=== PATIENT | female | born 1970 | race Caucasian/White ===

== ENCOUNTER 2018-01-02 01:30 | Outpatient (CLI) | payer MEDICARE, MEDICAID, SELFPAY ==
--- NOTE | 2018-01-02 15:20 | DI.REPORT_ITS ---
SYMPTOMS/DIAGNOSIS: BASELINE SCREENING, Z12.31 MAMMOGRAMS: Mammograms were interpreted according to the usual protocol including computer analysis with CAD system, tomosynthesis and C view imaging. The breast tissue is of moderate radiodensity. There is no evidence of a mass. There are no suspicious calcifications. SUMMARY: No evidence of malignancy, category 1. Yearly screening mammography is recommended. Breast density category B. SA ASSESSMENT OF FINDINGS: Negative. Category 1. Patient will receive a letter notifying them of these results. BI-RADS category B. There are scattered areas of fibroglandular density.
== END 2018-01-02 01:31 ==
PROVIDERS: PCP Nurse Practitioner Family; Visit Provider Nurse Practitioner Family
DX: Z12.31 Encounter for screening mammogram for malignant neoplasm of breast (principal)
CPT/HCPCS: 77063; 77067

== ENCOUNTER 2018-08-03 14:24 | Emergency (ER) | payer MEDICARE, MEDICAID, SELFPAY ==
[2018-08-03 14:30] VITALS: PULSE 76; RESP 16; TEMP 36.4; O2SAT 100
--- NOTE | 2018-08-03 14:45 | ED.GENADUL_ITS ---
Discharge Plan Disposition Patient Disposition: HOME Condition: Stable Discharge Details Chief Complaint: RashLesion Clinical Impression: Tinea corporis Reason For Visit: left arm rash Primary Care Provider: Pamela Mansfield ED Provider: Richard Cordova Home Meds and New Rx's Prescriptions: No Action Zyrtec 10 MG capsule 10 mg PO DAILY RF: 0 risperidone [Risperdal] 0.5 MG tablet 1 mg PO DAILY RF: 0 citalopram 20 MG tablet 20 mg PO DAILY RF: 0 hydroxyzine HCl 10 MG tablet 10 mg PO PRN RF: 0 fluticasone propionate [Flonase Allergy Relief] 9.9 ML spray,suspension 1 - 2 spry NS DAILY Qty: 1 RF: 3 Discharge Instructions Instructions: Tinea Corporis (ED) Additional Instructions: Please use the provided cream twice daily until the rash clears. If the rash is not clearing over the next 1-2 weeks please follow-up with your primary care provider for reassessment. Feel free to return to the emergency department for any new or significant worsening of symptoms Referrals: Pamela Mansfield, JOSE L [Primary Care Provider] - (As needed for reassessment) Discharge Data Discharge Date/Time-TO BE ENTERED AT DEPARTURE: 08/03/18 14:57 Medical Decision Making Patient presenting to the emergency department for chief complaint of left upper arm rash. Patient states that this began as an itchy round area and has worsened over the past couple days. Patient denies any other symptoms, no other rash, no fever no chills no difficulty breathing. Physical exam shows a circular erythematous scaly patch with central clearing and raised border. Symptoms are consistent with tinea corporis on physical exam is otherwise unremarkable. Given this patient was placed on clotrimazole cream to apply twice daily until rash clears. Patient was encouraged to return for any new or significant worsening of symptoms otherwise to follow-up with primary care provider as needed for reassessment. After discussion of diagnosis and plan of care patient has no further needs, questions, or concerns and states clear understanding to return to the emergency department for any worsening symptoms. HPI General Mode of arrival: ambulatory . Date/Time Provider Initiated Documentation: 08/03/18 14:33 . Limitations to Documentation: no limitations . Information obtained by: patient and RN notes reviewed . History of Present Illness described as moderate, with intensity rated at 5. Quality is described as burning and aching, and is localized to the left and upper extremity. Patient started experiencing this day(s) (3) and it has been constant. No relieving factors improve symptom(s), No exacerbating factors reported . Patient notes no other symptoms.. Patient did receive the following treatments prior to arrival, none Related Data Home Medications Medication Instructions Recorded Confirmed cetirizine [Zyrtec] 10 mg PO DAILY 09/09/15 05/20/18 citalopram 20 mg PO DAILY tab-cap 09/09/15 05/20/18 risperidone [Risperdal] 1 mg PO DAILY tab-cap 09/09/15 05/20/18 hydroxyzine HCl 10 mg PO PRN 12/13/16 05/20/18 fluticasone propionate [Flonase 1 - 2 spry NS DAILY #1 bottle 12/24/17 05/20/18 Allergy Relief] Previous Rx's Medication Instructions Recorded fluticasone propionate [Flonase 1 - 2 spry NS DAILY #1 bottle 12/24/17 Allergy Relief] Allergies Allergy/AdvReac Type Severity Reaction Status Date / Time No Known Allergies Allergy Verified 08/03/18 14:34 General Stated Complaint: RashLesion YULISA: 4 Review of Systems Constitutional Denies chills and Denies fever(s) ENT Denies lip swelling and Denies throat swelling Musculoskeletal Denies joint swelling Integumentary/Breasts Reports as per HPI and Reports rash Allergic/Immunologic Denies lip swelling and Denies throat swelling [facility]LY [facility] Medical History Allergic rhinitis Legally blind Mental health disorder Surgical History Abdominal hysterectomy (07/31/12) Family History Mother Essential hypertension Glaucoma Father Prostate cancer Essential hypertension Grandfather No problems noted. Grandmother No problems noted. 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 Do you feel safe in your relationship?: Yes Exam Const General: cooperative, healthy appearing, comfortable and no acute distress Orientation: alert, awake and oriented x3 HENMT Mouth: moist mucous membranes Resp Effort & Inspection: normal respiratory effort, able to speak in complete sentences and no respiratory distress Skin General skin exam: erythema (Raised lesion to left medial upper arm approximately 4 cm luz elena) Course Vital Signs Temperature 36.4 C L 08/03/18 14:30 Pulse 76 08/03/18 14:30 Respiratory Rate 16 08/03/18 14:30 Pulse Oximetry 100 08/03/18 14:30 Temperature 36.4 C L 08/03/18 14:30 Temperature Source Temporal Artery Scan 08/03/18 14:30 Pulse 76 08/03/18 14:30 Respiratory Rate 16 08/03/18 14:30 Respiratory Effort 08/03/18 14:32 Blood Pressure Position Sitting 08/03/18 14:30 Pulse Oximetry 100 08/03/18 14:30 Oxygen Delivery Method Room Air 08/03/18 14:30 Oxygen Flow Rate 0 08/03/18 14:30 Comment 08/03/18 14:30
[2018-08-03] MEDS: Clotrimazole 1% 15 GM TUBE TP (14:53)
== END 2018-08-03 14:57 | disposition home or self-care (01) ==
PROVIDERS: Emergency Provider Nurse Practitioner Family; PCP Nurse Practitioner Family
DX: B35.4 Tinea corporis (principal)
CPT/HCPCS: 99282

== ENCOUNTER 2019-06-26 09:34 | Outpatient (CLI) | payer MEDICARE, MEDICAID, SELFPAY ==
[2019-06-26 11:27] LABS: ALT 23 U/L (14-59); AST 13 U/L (15-37); Albumin 3.8 g/dL (3.4-5.0); Alkaline Phosphatase 79 U/L (46-116); Anion Gap 7.3 mmol/L (3-11); BUN 14 mg/dL (7-18); Bilirubin, Total 0.6 mg/dL (0.2-1.0); CO2 26.7 mmol/L (21.0-32.0); CREATININE 1.03 mg/dL (0.55-1.02); Calcium 8.7 mg/dL (8.5-10.1); Calculated LDL 132 mg/dL (<100); Chloride 107 mmol/L (98-107); Cholesterol 203 mg/dL (<200); Estimated GFR 57.44 (mL/min/1.73m2); Glucose 92 mg/dL (74-106); HDL Cholesterol 57 mg/dL (40-60); Potassium 4.5 mmol/L (3.5-5.1); Sodium 141 mmol/L (136-145); Total Protein 6.6 g/dL (6.4-8.2); Triglyceride 71 mg/dL (<150)
== END 2019-06-26 09:54 ==
PROVIDERS: PCP Nurse Practitioner Family; Visit Provider Nurse Practitioner Family
DX: F41.1 Generalized anxiety disorder (principal); Z79.899 Other long term (current) drug therapy
CPT/HCPCS: 36415; 80053; 80061

== ENCOUNTER 2021-06-28 02:05 | Outpatient (CLI) | payer OTHER, MEDICAID, SELFPAY ==
[2021-06-28 12:02] LABS: Hemoglobin A1C 5.8 % (<5.7)
[2021-06-28 13:19] LABS: ALT 40 U/L (14-59); AST 14 U/L (15-37); Alkaline Phosphatase 89 U/L (46-116); Anion Gap 11.2 mmol/L (3-11); BUN 22 mg/dL (7-18); Bilirubin, Total 0.6 mg/dL (0.2-1.0); CO2 21.8 mmol/L (21.0-32.0); CREATININE 1.2 mg/dL (0.55-1.02); Calcium 8.5 mg/dL (8.5-10.1); Calculated LDL 109 mg/dL (<100); Chloride 104 mmol/L (98-107); Cholesterol 179 mg/dL (<200); Estimated GFR 47.75 (mL/min/1.73m2); Glucose 109 mg/dL (74-106); HDL Cholesterol 57 mg/dL (40-60); Potassium 4.1 mmol/L (3.5-5.1); Sodium 137 mmol/L (136-145); Triglyceride 68 mg/dL (<150)
[2021-06-29 11:35] LABS: Hepatitis C Ab w Rflx HCV PCR Negative (Negative)
[2021-06-29 15:00] LABS: HIV-1/2 Ag & Ab Screen Negative (Negative)
== END 2021-06-28 02:06 | disposition home or self-care (01) ==
LOC: LBO 02:05
PROVIDERS: PCP Nurse Practitioner Family; Visit Provider Nurse Practitioner Family
DX: Z13.1 Encounter for screening for diabetes mellitus (principal); Z51.81 Encounter for therapeutic drug level monitoring; E78.5 Hyperlipidemia, unspecified; Z11.4 Encounter for screening for human immunodeficiency virus [HIV]; R73.01 Impaired fasting glucose; Z11.59 Encounter for screening for other viral diseases
CPT/HCPCS: 36415; 80053; 80061; 86803; 87389; 83036

== ENCOUNTER 2021-07-08 16:15 | Outpatient (REF) | payer OTHER, MEDICAID, SELFPAY ==
[2021-07-08 19:55] LABS: COMMENT (LAB VIEW ONLY) 184.72 mg/dL; Microalb ug/mg Crea 6.1 ug/mg Cr
[2021-07-08 20:30] LABS: Bilirubin Negative (Negative); Blood Trace-intact (Negative); Clarity Clear (Clear); Glucose Negative (Negative); Ketones Negative (Negative); Leukocyte Esterase Negative (Negative); Nitrite Negative (Negative); Specific Gravity >= 1.030 (1.005-1.025); Urobilinogen 0.2 EU/dL (Up TO 0.2)
[2021-07-08 20:50] LABS: Bacteria Negative HPF (Negative); Casts Negative LPF (Negative); Crystals Negative HPF (Negative); Epithelial Cells Many HPF (Negative); Mucus Negative (Negative); Other Cells Negative (Negative)
[2021-07-08 20:51] LABS: C & S Indicated? No/Sq. Contamination
== END 2021-07-08 16:16 | disposition home or self-care (01) ==
LOC: LBN 16:15
PROVIDERS: PCP Nurse Practitioner Family; Visit Provider Nurse Practitioner Family
DX: N28.9 Disorder of kidney and ureter, unspecified (principal)
CPT/HCPCS: 81003; 81015; 82043; 82570

== ENCOUNTER → 2021-08-02 01:12 | Outpatient (CLI) | payer OTHER, MEDICAID, SELFPAY ==
--- NOTE | 2021-08-02 07:45 | DI.US_ITS ---
Exam(s) US RENAL EXAM: US RENAL CLINICAL HISTORY: Persistent renal insufficiency ?stone mass ckD?,N28.9 TECHNIQUE: Ultrasound of both kidneys performed using standard protocol. COMPARISON: No exams were available for comparison FINDINGS: RIGHT KIDNEY: Measures 9.7 cm in length. No cysts evident. Normal cortical thickness and corticomedullary different iation .No solid masses No intrarenal calculi nor hydronephrosis. LEFT KIDNEY: Measures 11 cm in length. No cysts evident. Normal cortical thickness and corticomedullary different iaion. No solids masses. No intrarenal calculi nor hydonephrosis. URINARY BLADDER: Prevoid volume is 40 cc Postvoid volume is 0 cc No evidence of bladder mass nor diverticuli. Ureterovesical jets: Both identified and appear symmetrical IMPRESSION: 1. No significant ultrasound findings in the kidneys. 2. DATA REPOSITORY:
== END ==
PROVIDERS: PCP Nurse Practitioner Family; Visit Provider Nurse Practitioner Family
DX: N28.89 Other specified disorders of kidney and ureter (principal)
CPT/HCPCS: 76770

== ENCOUNTER 2021-09-21 04:43 | Outpatient (CLI) | payer OTHER, MEDICAID, SELFPAY ==
[2021-09-21 14:54] LABS: Bilirubin Negative (Negative); Blood Small (Negative); Clarity Clear (Clear); Glucose Negative (Negative); Ketones Negative (Negative); Leukocyte Esterase Trace (Negative); Nitrite Negative (Negative); Specific Gravity >= 1.030 (1.005-1.025); Urobilinogen 0.2 EU/dL (Up TO 0.2); pH 5.5 (5-8)
[2021-09-21 15:07] LABS: Bacteria Moderate HPF (Negative); C & S Indicated? No/Sq. Contamination; Casts Negative LPF (Negative); Crystals Negative HPF (Negative); Epithelial Cells Moderate HPF (Negative); Mucus Heavy (Negative); Other Cells Negative (Negative)
[2021-09-21 16:04] LABS: Anion Gap 8.4 mmol/L (3-11); BUN 14 mg/dL (7-18); CO2 26.6 mmol/L (21.0-32.0); CREATININE 1.1 mg/dL (0.55-1.02); Calcium 8.6 mg/dL (8.5-10.1); Chloride 105 mmol/L (98-107); Estimated GFR 52.79 (mL/min/1.73m2); Glucose 97 mg/dL (74-106); Potassium 3.5 mmol/L (3.5-5.1); Sodium 140 mmol/L (136-145)
== END 2021-09-21 04:44 | disposition home or self-care (01) ==
LOC: LBO 04:43
PROVIDERS: PCP Nurse Practitioner Family; Visit Provider Nurse Practitioner Family
DX: N28.9 Disorder of kidney and ureter, unspecified (principal); R31.29 Other microscopic hematuria
CPT/HCPCS: 36415; 80048; 81003; 81015

== ENCOUNTER 2021-10-06 02:52 | Outpatient (CLI) | payer OTHER, MEDICAID, SELFPAY | END 2021-10-06 02:53 | disposition home or self-care (01) | LOC: DS 02:53 | PROVIDERS: PCP Nurse Practitioner Family; Visit Provider Dietitian, Registered ==

== ENCOUNTER → 2021-10-19 03:33 | Outpatient (CLI) | payer OTHER, MEDICAID, SELFPAY ==
--- NOTE | 2021-10-06 14:10 | W.NUTCONSULT ---
Date of service: 10/06/21 Time of Service: 13:10 Nutritional Consult ASSESSMENT: Duyen was referred for weight management education in view of 50 lbs weight gain in last 5 years. BMI: 42. PMH: obesity, pre diabetes (A1C: 5.7%). Most recent labs indicate elevated blood sugars with lipids wnl. Goal weight: < 200 lbs Duyen reports taking several anxiety meds including risperdal which most likely is contributing to weight gain. NUTRITIONAL DIAGNOSIS: obesity in view of elevated BMI INTERVENTION: Educated Duyen on how to follow a meal plan that meets [id number] kcal, 80-100 g Carbs, 60-70 g protein, 45-55 g fat with emphasis on complex carbs, lean protein and healthy fats. Recommended walking 1 mile per day with goal of 6 miles per week. MONITORING AND EVALUATION: follow up planned for 11/03/21 at 2 pm. Time Spent in Nutritional Counseling and Treatment: 30
--- NOTE | 2021-10-19 08:12 | DI.CT_ITS ---
Exam(s) CT ABDOMEN PELVIS WO EXAM: CT ABDOMEN PELVIS WO CLINICAL HISTORY: microscopic hematuria workup, R31.0. TECHNIQUE: Imaging Protocol: Axial computed tomography images with coronal and sagittal reformatted images were created and reviewed. COMPARISON: US US RENAL from 08/02/2021 FINDINGS: Lack of IV contrast does limit evaluation of the abdominal pelvic organs. ABDOMEN: Lung Bases: There are small bilateral pleural effusions. Liver: Normal density. No measurable mass. Gallbladder and biliary tract: No radiodense calculus or biliary ductal dilation. Pancreas: Normal density, no abnormal calcifications or inflammatory process. Spleen: Normal. Kidneys: Normal size, contour and axis.No radiodense stones or obstructive uropathy. No masses seen. Adrenal glands: No mass is seen. Lymph nodes: Within normal limits. Abdominal Aorta: Abdominal portion non-dilated. PELVIS: Bladder:Symmetric distention, no gross wall thickening. Bowel: No obstruction or bowel wall thickening. Appendix is unremarkable. Small hiatal hernia. Peritoneal cavity: Trace amount of free fluid in the pelvis which may be physiologic. No free air. Reproductive organs: Status post hysterectomy. Bones: Within normal limits. Soft Tissues: Within normal limits. IMPRESSION: 1. No evidence of nephrolithiasis or hydronephrosis. 2. Small bilateral pleural effusions. RADIATION DOSE DELIVERED: 1,361.07mGy.cm Total DLP DATA REPOSITORY: All CT scans at this facility are submitted to the National Radiology Data Registry (NRDR) Dose Index Registry (DIR) with the [employer] (ACR). RADIATION OPTIMIZATION: All CT scans at this facility use at least one of these dose optimization te chniques: automated exposure control; mA and/or kV adjustment per patient size (includes targeted exa ms where dose is matched to clinical indication); or iterative reconstruction.
== END ==
PROVIDERS: PCP Nurse Practitioner Family; Visit Provider Nurse Practitioner Family
DX: R31.0 Gross hematuria (principal); J90 Pleural effusion, not elsewhere classified; Z90.710 Acquired absence of both cervix and uterus
CPT/HCPCS: 74176

== ENCOUNTER 2021-10-25 13:31 | Outpatient (CLI) | payer OTHER, MEDICAID, SELFPAY ==
--- NOTE | 2021-10-25 13:30 | RT.EKG_ITS ---
APPROVED REPORT Exam: Resting ECG Reason for Exam: abnormal XR Patient Location: O HR:83 bpm ECG Measurements Heart Rate 83 AXIS SD 150 P 35 QRSd 79 QRS 19 QT 384 T 38 QTc 451 Conclusion Sinus rhythm...normal P axis, V-rate 60- 99 Normal Electrocardiogram
== END 2021-10-25 13:32 | disposition home or self-care (01) ==
LOC: DI.KIM 13:32
PROVIDERS: PCP Nurse Practitioner Family; Visit Provider Nurse Practitioner
DX: J90 Pleural effusion, not elsewhere classified (principal)
CPT/HCPCS: 93010

== ENCOUNTER 2021-10-27 02:59 | Outpatient (CLI) | payer OTHER, MEDICAID, SELFPAY ==
--- NOTE | 2021-10-27 12:15 | DI.RAD_ITS ---
Exam(s) XR CHEST 2V PA LATERAL EXAM: XR CHEST 2V PA LATERAL CLINICAL HISTORY: small bilateral pleural effusion on CT, J90. TECHNIQUE: 2D digital imaging was performed. COMPARISON: CT CT ABDOMEN PELVIS WO from 10/19/2021 FINDINGS: 2 views: Heart size is normal. The mediastinum is not widened. Lungs are clear. No infiltrates nor pleural effusions. IMPRESSION: No acute pulmonary findings.No obvious pleural effusions. However, please note that the uppermost im ages of the recent abdominal CT scan performed 10/19/2021 did reveal small bilateral pleural effusion s. DATA REPOSITORY: RADIATION DOSE DELIVERED:
[2021-10-27 14:12] LABS: HGB 13.7 g/dL (11.2-15.7); MCH 29.5 pg (27.0-33.0); MCHC 33.4 % (32.0-36.0); MCV 88 fL (80-95); MPV 12.6 fL (8.0-11.0); Platelet Count 176 10^3/uL (130-400); RBC 4.65 10^6/uL (3.93-5.22); RDW 12.9 % (11.7-14.6); RDW-SD 41.8 fL; WBC 4.41 10^3/uL (4.4-10.8)
[2021-10-27 16:06] LABS: TSH (W/Ref FT4) 1.02 uIU/mL (0.36-3.74)
== END 2021-10-27 03:00 | disposition home or self-care (01) ==
PROVIDERS: Nurse Practitioner; PCP Nurse Practitioner Family; Visit Provider Nurse Practitioner Family
DX: J90 Pleural effusion, not elsewhere classified (principal); R63.5 Abnormal weight gain; R73.01 Impaired fasting glucose
CPT/HCPCS: 36415; 85027; 71046; 84443

== ENCOUNTER → 2021-12-20 13:03 | Outpatient (BNVA) | payer OTHER, MEDICAID, SELFPAY | PROVIDERS: PCP Nurse Practitioner Family; Referring Provider Nurse Practitioner Family; Visit Provider Nurse Practitioner Gerontology | DX: R31.29 Other microscopic hematuria (principal) | CPT/HCPCS: 51798; 81003; 99205 ==

== ENCOUNTER → 2021-12-30 13:57 | Outpatient (BNVA) | payer OTHER, MEDICAID, SELFPAY | PROVIDERS: PCP Nurse Practitioner Family; Referring Provider Nurse Practitioner Family; Visit Provider Physical Therapy Assistant | DX: Z12.11 Encounter for screening for malignant neoplasm of colon (principal) ==

== ENCOUNTER 2022-01-10 08:05 | Day surgery (SDC) | payer OTHER, MEDICAID, SELFPAY ==
--- NOTE | 2022-01-03 13:29 | W.NUTRFU ---
Date of service: 01/03/22 Time of Service: 13:29 Nutrition Note NOTE: Duyen returns for weight management education. Wt: 202 lbs. Has lost 25 lbs in last 3 months. BMI: 35 Diet Recall: fiber one protein bar for breakfast, L:lean cuisine and atkins PB cup, D: meat and vegetables Exercise: walks 3 miles per day- 20 miles per week on trail Goal Weight: 150-160 lbs. Duyen is very happy with her weight loss and wants to get back to weighing 150 lbs. She reports her motivation for losing weight was to avoid getting DM and she feels better. She enjoys walking daily and plans to join gym in winter. She continues to follow a strict low carb diet. Risperdal has been decreased, she only takes at night. Reviewed meal plan and made adjustments for increased variety. No follow up planned at this time. Duyen to reach out prn. Time Spent in Nutritional Counseling and Treatment: 30
--- NOTE | 2022-01-09 22:10 | PDOC.DSDIS_ITS ---
Discharge Plan Disposition Patient Disposition: HOME Condition: Good Discharge Details Reason For Visit: CE/colon cancer screening Attending Provider: Jessica Wyman Primary Care Provider: Pamela Mansfield Home Meds and New Rx's Prescriptions: Continued citalopram 40 mg tablet 40 mg PO DAILY fluticasone propionate [Flonase Allergy Relief] 50 mcg/actuation spray,suspension 1 - 2 spray NS DAILY Qty: 1 3RF topiramate 50 mg tablet 50 mg PO TID Zyrtec 10 MG capsule 10 mg PO DAILY risperidone [Risperdal] 0.5 mg tablet 1 mg PO QHS Discontinued polyethylene glycol 3350 17 gram/dose powder 238 g PO ONCE Qty: 238 0RF Rx Instructions: take per colonoscopy instructions bisacodyl [Dulcolax (bisacodyl)] 5 mg tablet,delayed release (DR/EC) 5 mg PO ONCE Qty: 4 0RF Rx Instructions: take per colonoscopy instructions Discharge Instructions Additional Instructions: DSU Colonoscopy Post- Op Instructions Instructions for Everyone who is given Anesthesia: For your safety, please do the following for the next twenty-four (24) hours: *Do Not operate a motor vehicle (car, truck, motorcycle, etc.) *Do Not drink alcoholic beverages or use any recreational drugs for the first 24 hours or while taking pain medications. The medications in your body may have a reaction that can be dangerous. *Do Not make any important decisions or sign any important papers. Findings: Normal Follow up: repeat in 10 yrs time 1. No lifting over 20 pounds or strenuous activity for the first 24 hours after your procedure. After 24 hours there are no restrictions on your activity but you may feel fatigued for a few days. 2. After you arrive home you may have a light meal and return to your normal diet as you can tolerate it without feeling sick to your stomach. 3. You may have a bloated, gaseous feeling in your belly (abdomen) after a colonoscopy. Passing gas and belching will help. Walking or lying down on your left side with your knees flexed may relieve the discomfort. Call the office at [phone] (Office) or [phone] (Hospital) right away if you notice any of the following: a.Vomiting of blood or ?coffee ground stools?. b.Rectal bleeding 1Tbsp, blood clots or continuous bleeding. c.Severe belly (abdominal) pain. d.A hard distended belly (abdomen) and an inability to pass gas. 4. Please don?t expect to have a normal BM (bowel movement) for 2-3 days after y our procedure. 5. If there are questions regarding the findings of your procedure, please contact your doctor 6. If you are unable to contact your doctor with a problem, contact the hospital at [phone]. 7. Continue all your regular medications unless directed otherwise. I understand the above instructions and have no questions. Signature of Patient or Adult Escort Name of Responsible Adult Escort Signature of Nurse Date/Time Activity:: see above Diet:: see above
--- NOTE | 2022-01-09 22:17 | COLE_ITS ---
Colonoscopy Report Date of procedure: 01/10/22 Pre-op diagnosis general: RCR screening Post-op diagnosis procedure note: other (normal ) Surgeon: Jessica Wyman Anesthesia Type: General:No Airway Estimated blood loss (mL): 0 Pathology: none sent Complications: None Disposition: same day Prep: Miralax/Dulcolax Retraction Time: 7 Procedure Description: After informed consent was obtained the patient was taken to the procedure room and placed in a left decubitous position. Monitors were applied and a time out was done. The patients name, date of , procedure, allergies to medications and metal in their body was reviewed. The patient was then sedated. Once sedate d and comfortable a rectal exam was done. External exam was normal. Internal exam revealed a normal sphincter tone and no palpable masses. The scope was then introduced and retrofelexed. NO internal hemorrhoids were identified. She does have some hemorrhoidal tags. Without the scope was then advanced to the cecum BB PS difficulty. The TI and appendiceal orifice were identified. The prep was 3 in all segments for a total of 9 . The scope was then slowly retracted over 7 minutes back into the rectum. There are no polyps, AVMs, or diverticula visualized today. The mucosa is pink and healthy with a normal vascular pattern.. The scope was removed and the patient was woken up and taken back to Same day surgery in stable condition. The patient tolerated the procedure well and there were no immediate complications. Follow up: The patient should follow up in 10 years unless they develop changes in bowel habits or other new gastrointestinal complaints.
--- NOTE | 2022-01-10 06:39 | W.ANESPRE ---
General Info Date of Service Date Performed: 01/10/22 Height: 5 ft 3 in Weight: 92.533 kg Body Mass Index (BMI): 36.1 Surgical Procedure: Operation Date: 01/10/22 09:05 Proposed Procedure Side Surgeon maria teresa Wyman, DO Meds Allergies and Home Medications Allergies Allergy/AdvReac Type Severity Reaction Status Date / Time No Known Allergies Allergy Verified 01/10/22 08:28 Home Medication Medication Instructions Recorded cetirizine 10 mg capsule (Zyrtec) 10 mg PO DAILY 09/09/15 citalopram 40 mg tablet 40 mg PO DAILY 04/06/21 fluticasone propionate 50 1 - 2 spray NS DAILY ##1 04/06/21 mcg/actuation nasal spray,suspension (Flonase Allergy Relief) risperidone 0.5 mg tablet 1 mg PO QHS 12/20/21 (Risperdal) topiramate 50 mg tablet 50 mg PO TID 12/20/21 Current Visit Medications: Current Medications Generic Name Dose Route Start Last Admin Trade Name Freq PRN Reason Stop Dose Admin Hyoscyamine Sulfate 0.125 mg 01/09/22 22:09 Hyoscyamine 0.125 Mg Sl/Oral/Chew SL DIRECTED PRN Ringer's Solution 1,000 mls @ 80 mls/hr 01/10/22 06:00 IV 02/08/22 23:59 INF[facility]ION [facility] IV Miscellaneous Supplies 1 each 01/10/22 06:00 Iv Access IV 02/08/22 23:59 DIRECTED MICHEAL Ondansetron HCl 4 mg 01/09/22 22:09 Ondansetron 4 Mg/2 Ml Vial IVP Q4H PRN PRN Nausea / Vomiting Sodium Chloride 0 ml 01/10/22 06:00 Normal Saline Flush 10 Ml Syr IV 02/08/22 23:59 PRN PRN Sodium Chloride 0 ml 01/10/22 06:00 Normal Saline 10 Ml Vial IJ 02/08/22 23:59 DIRECTED PRN Sterile Water 0 ml 01/10/22 06:00 Water,Injection,Sterile 10 Ml Vial IJ 02/08/22 23:59 DIRECTED PRN PFSH Active Problems Active Problems: Problem Status Onset Code Obesity E66.9 IFG (impaired fasting glucose) R73.01 Renal insufficiency N28.9 Legally blind 03/10/16 H54.8 Medical History Medical History Allergic rhinitis Environmental (hui avery) Anxiety (05/12/15) Gastroesophageal reflux disease with esophagitis (05/12/15) Resolved with LSMs Hyperlipidemia, unspecified 06/2021 labs: 10-year ASCVD risk ~0.7% --> continue to check annually due to treatment with risperidone Microscopic hematuria Myopic degeneration, bilateral [place] [place] Surgical History Surgical History (Updated 01/10/22 @ 08:[address] Paris RN) Hx of section Hx of tubal ligation Status post hysterectomy with oophorectomy (~07/31/12) 2/2 endometriosis Tobacco Smoking/Tobacco Use Status: Never Passive smoking exposure: No Alcohol Alcohol Intake: never Substance Use Substance use: Never Substance use type: does not use Vital Signs and Lab Results Vital Signs Most Recent Vital Signs in EMR: Temp Pulse Resp BP Pulse Ox 36.5 C 85 22 117/84 96 01/10/22 08:22 01/10/22 08:22 01/10/22 08:22 01/10/22 08:22 01/10/22 08:22 Lab Results Blood Type / Crossmatch: No Data to Display Complete Blood Count: No Data to Display Complete Metabolic Panel: No Data to Display Liver Function Panel: No Data to Display Coagulation Panel: No Data to Display Cardiac Panel: No Data to Display Arterial Blood Gas: No Data to Display Venous Blood Gas: No Data to Display Pancreas Panel: No Data to Display Thyroid Panel: No Data to Display Infectious Disease: No Data to Display Blood Cultures: No Data to Display Toxicology Panel: No Data to Display Panel: No Data to Display Imaging and Studies Imaging and Studies Study information below may be from another EMR and interpreted by another provider. Please see original notes in EMR for more complete details. EKG Summary: 10/16: sinus rhythm. Anesthesia Assessment and Plan Anesthesia History Personal History: PONV Family History: No Family History of Anesthesia Complications Exercise Tolerance Exercise Tolerance: Metabolic Equivalents>4 Cardiac & Pulmonary Exam Cardiac Exam: Normal S1/S2 Heart Sounds Pulmonary Exam: Clear Bilateral Breath Sounds Implantable Cardiac Device Does patient have a Pacemaker or an ICD?: No Airway Exam Known Difficult Airway: No Mallampati Class: 4 Mouth Opening: Narrow (< 3cm) Thyromental Distance: Greater than 3 cm Neck Range of Motion: Full ROM Neck Circumference: Normal Teeth Condition: Normal Dentition ASA Classification ASA Score: ASA 2 Emergency Case?: No NPO Status NPO Status: NPO Clears >2 hours, Solids >8 hours Status Status: History of Hysterectomy Anesthesia Plan Resuscitation Status: Full Code Anesthesia Technique: General Anesthesia Airway Planned: Natural Airway Monitors Used: Standard Monitors Preoperative Comments:: 51 yo female for colo. Sig PMHx: CKD, GERD (no heartburn since anxiety medication)
[2022-01-10 08:22] VITALS: BP 117/84; PULSE 85; RESP 22; TEMP 36.5; O2SAT 96
[2022-01-10] MEDS: Lactated Ringers 1,000 ML 80 ML IV (08:39)
[2022-01-10 08:41] VITALS: BMI 36.1
[2022-01-10 09:28] VITALS: BP 103/80; PULSE 77; RESP 16; TEMP 36.5; O2SAT 94
[2022-01-10 09:56] VITALS: BP 107/75; PULSE 63; RESP 18; TEMP 36.5; O2SAT 96
--- NOTE | 2022-01-10 09:56 | W.ANESPOSTOP ---
Postoperative Evaluation Date, Time and Location Date Performed: 01/10/22 Time Performed: 09:56 Patient Location: Day Surgery Unit Vital Signs Most Recent Imported Vital Signs: Most Recent Vital Signs Temp Pulse Resp BP Pulse Ox 36.5 C 77 16 103/80 94 01/10/22 09:28 01/10/22 09:28 01/10/22 09:28 01/10/22 09:28 01/10/22 09:28 Pain Score Most Recent Pain Score: Most Recent Pain Score Pain Level 0 01/10/22 09:28 Assessment Mental Status: Awake (Alert & Oriented to Patient Baseline) Airway and Respiratory Function: Patent airway with normal (patient baseline) respiratory exam Cardiovascular Function: Hemodynamically Stable Hydration Status: Adequately Hydrated Nausea & Vomiting: No Nausea or Vomiting Pain: Pt. Denies Any Pain Peripheral Nerve Block: Patient did not receive a nerve block
== END 2022-01-10 10:33 | disposition home or self-care (01) ==
PROVIDERS: PCP Nurse Practitioner Family; Visit Provider Surgery
PROC: 0DJD8ZZ Inspection of Lower Intestinal Tract, Via Natural or Artificial Opening Endoscopic (ICD-10-PCS; CPT 45378; principal; 2022-01-10 09:00)
DX: Z12.11 Encounter for screening for malignant neoplasm of colon (principal); K21.9 Gastro-esophageal reflux disease without esophagitis; E66.9 Obesity, unspecified
CPT/HCPCS: 45378

== ENCOUNTER → 2022-02-27 13:32 | Outpatient (BNVA) | payer OTHER, MEDICAID, SELFPAY | PROVIDERS: PCP Nurse Practitioner Family; Referring Provider Nurse Practitioner Family; Visit Provider Nurse Practitioner Gerontology | DX: R31.29 Other microscopic hematuria (principal) | CPT/HCPCS: 81003; 99213 ==

== ENCOUNTER 2022-02-27 15:42 | Outpatient (REF) | payer OTHER, MEDICAID, SELFPAY ==
[2022-02-27 16:29] LABS: Bilirubin Negative (Negative); Blood Trace-lysed (Negative); Clarity Clear (Clear); Glucose Negative (Negative); Ketones Negative (Negative); Leukocyte Esterase Negative (Negative); Nitrite Negative (Negative); Urobilinogen 0.2 EU/dL (Up TO 0.2)
[2022-02-27 17:11] LABS: Bacteria Negative HPF (Negative); C & S Indicated? No; Crystals Negative HPF (Negative); Epithelial Cells Rare HPF (Negative); Mucus Negative (Negative); WBC Negative HPF (0-5)
== END 2022-02-27 15:43 | disposition home or self-care (01) ==
LOC: LBN 15:42
PROVIDERS: PCP Nurse Practitioner Family; Visit Provider Nurse Practitioner Gerontology
DX: R31.29 Other microscopic hematuria (principal)
CPT/HCPCS: 81003; 81015

== ENCOUNTER 2022-05-04 14:07 | Emergency (ER) | payer OTHER, MEDICAID, SELFPAY ==
[2022-05-04 14:23] VITALS: BP 100/62; PULSE 75; RESP 16; TEMP 36.6; O2SAT 95
--- NOTE | 2022-05-04 15:44 | W.ED.GENAD ---
Discharge Plan Disposition Patient Disposition: Home Condition: Stable Discharge Details Clinical Impression: Finger laceration Primary Care Provider: Pamela Mansfield ED Provider: Richard Cordova Home Meds and New Rx's Prescriptions: No Action citalopram 40 mg tablet 40 mg PO DAILY fluticasone propionate [Flonase Allergy Relief] 50 mcg/actuation spray,suspension 1 - 2 spray NS DAILY Qty: 1 3RF topiramate 50 mg tablet 50 mg PO TID Zyrtec 10 MG capsule 10 mg PO DAILY risperidone [Risperdal] 0.5 mg tablet 1 mg PO QHS Discharge Instructions Instructions: Finger Laceration (ED), Skin Adhesive Care (ED) Additional Instructions: Watch for any signs of infection and return immediately to the emergency department if these occur. Otherwise keep wound clean and dry. Follow-up with primary care provider as needed for reassessment Referrals: Pamela Mansfield, JOSE L [Primary Care Provider] - Discharge Data Discharge Date/Time-TO BE ENTERED AT DEPARTURE: 05/04/22 16:08 Medical Decision Making Patient presenting to the emergency department for chief complaint of finger laceration. She states she was reaching underneath the car seat and lacerated her right middle finger. Patient denies any other injury or trauma and states that she is up-to-date on her tetanus. Patient has approximately 1 cm superficial lacerations to the distal aspect of the right middle finger. Exam is otherwise unremarkable. Wound was cleansed and Dermabond applied. After discussion of diagnosis and plan of care patient has no further needs, questions, or concerns and states clear understanding to return to the emergency department for any worsening symptoms. This documentation was generated using [email or web address] system, please disregard any oddities of phrase or misspellings. Sign Out No HPI General Mode of arrival: ambulatory. Date/Time Provider Initiated Documentation: 05/04/22 15:31. Limitations to Documentation: no limitations. Information obtained by: patient and RN notes reviewed. History of Present Illness 51 year old F presents to the emergency department with the chief complaint of Right middle finger laceration, described as moderate, Quality is described as sharp, and is localized to the right and upper extremity. Patient reports no radiation. Patient started experiencing this hour(s) (2.5) and it has been constant. No relieving factors improve symptom(s), No exacerbating factors reported . Patient notes no other symptoms.. Patient did receive the following treatments prior to arrival, none Related Data Home Medications Medication Instructions Recorded Confirmed cetirizine 10 mg capsule (Zyrtec) 10 mg PO DAILY 09/09/15 05/04/22 citalopram 40 mg tablet 40 mg PO DAILY 04/06/21 05/04/22 fluticasone propionate 50 1 - 2 spray NS DAILY ##1 04/06/21 05/04/22 mcg/actuation nasal spray,suspension (Flonase Allergy Relief) risperidone 0.5 mg tablet 1 mg PO QHS 12/20/21 05/04/22 (Risperdal) topiramate 50 mg tablet 50 mg PO TID 12/20/21 05/04/22 Previous Rx's Medication Instructions Recorded fluticasone propionate 50 1 - 2 spray NS DAILY ##1 04/06/21 mcg/actuation nasal spray,suspension (Flonase Allergy Relief) Allergies Allergy/AdvReac Type Severity Reaction Status Date / Time No Known Allergies Allergy Verified 01/10/22 08:28 General Stated Complaint: Laceration YULISA: 4 Review of Systems Narrative: 6 systems reviewed and unremarkable except what is marked below. Musculoskeletal Musculoskeletal: Denies limited range of motion Integumentary/Breasts Skin/Breast: Reports as per HPI Neurologic Neurologic: Denies sensory deficit PFSH All Active Problems (Updated 05/04/22 @ 15:49 by Richard Cordova NP) Legally blind (Chronic 03/10/16) Renal insufficiency (Chronic) IFG (impaired fasting glucose) (Acute) Obesity (Chronic) Finger laceration (Acute) Medical History Allergic rhinitis Environmental (hui avery) Anxiety (05/12/15) Gastroesophageal reflux disease with esophagitis (05/12/15) Resolved with LSMs Hyperlipidemia, unspecified 06/2021 labs: 10-year ASCVD risk ~0.7% --> continue to check annually due to treatment with risperidone Microscopic hematuria Myopic degeneration, bilateral Dr. Ballard ([facility] [place] [facility]) Surgical History Hx of section Hx of tubal ligation Status post hysterectomy with oophorectomy (~07/31/12) 2/2 endometriosis Family History Mother Glaucoma Hypertension Father , Prostate CA at age 72. Prostate cancer Hypertension Other Alcohol abuse Social History Smoking/Tobacco Use Status: Never Smoking risk assessment performed?: Yes Alcohol Intake: never Drug use: Never Substance use type: does not use Adopted: No Caregiver/Support person: No Foster care: No Household members: friend(s) and other Details: 1 roommate Housing: apartment Number of Children: 1 Communication Needs: Blind and Corrective Lenses Education Level: high school Do you need help understanding health information?: Never current occupation: Disabled Pets and animals: Yes Pets and animals: cat(s) and other Details: rats Sexually active: No Do you think of yourself as: straight/heterosexual Current gender identity: female What is your relationship status?: How often do you talk on the phone with friends or family?: once per week How often do you get together with friends or relatives?: decline to answer Do you belong to any clubs or organized social groups?: no Panel score (0-1 are the most socially isolated patients): 0 What type of physical activity do you participate in: none Seatbelt use: always Drive intox or ride w/intox funeral car driver: No Do you feel safe at home: Yes Do you feel safe in your relationship?: Yes Exam Const General: cooperative, no acute distress and not ill appearing Orientation: alert, awake and oriented x3 HENMT Mouth: moist mucous membranes Resp Effort & Inspection: normal respiratory effort, able to speak in complete sentences and no respiratory distress Cardio Rate: regular rate Rhythm: regular rhythm Neuro General: patient alert, patient awake, patient oriented x3, moves all extremities and no focal motor deficits Sensory Exam: no sensory deficits noted Extrem General: normal exam except as noted Right upper extremity: hand Details: laceration 3rd digit distal Details: linear, superficial, with motor nerve function intact and with sensation intact Course Vital Signs Vital signs: Vital Signs Temperature 36.6 C 05/04/22 14:23 Pulse 75 05/04/22 14:23 Respiratory Rate 16 05/04/22 14:23 Blood Pressure 100/62 05/04/22 14:23 Pulse Oximetry 95 05/04/22 14:23 Temperature 36.6 C 05/04/22 14:23 Temperature Source Temporal Artery Scan 05/04/22 14:23 Pulse 75 05/04/22 14:23 Respiratory Rate 16 05/04/22 14:23 Respiratory Effort 05/04/22 14:26 Blood Pressure 100/62 05/04/22 14:23 Blood Pressure Position Sitting 05/04/22 14:23 Pulse Oximetry 95 05/04/22 14:23 Oxygen Delivery Method Room Air 05/04/22 14:23 Oxygen Flow Rate 0 05/04/22 14:23
[2022-05-04 15:51] VITALS: BP 106/86; PULSE 70; TEMP 36; O2SAT 96
== END 2022-05-04 16:08 | disposition home or self-care (01) ==
PROVIDERS: Emergency Provider Nurse Practitioner Family; PCP Nurse Practitioner Family
DX: S61.212A Laceration without foreign body of right middle finger without damage to nail, initial encounter (principal); W26.8XXA Contact with other sharp object(s), not elsewhere classified, initial encounter
CPT/HCPCS: 99282

== ENCOUNTER 2022-06-01 01:12 | Outpatient (CLI) | payer OTHER, MEDICAID, SELFPAY ==
--- NOTE | 2022-06-01 08:00 | DI.MAMMO_ITS ---
Exam(s) MAMMO SCREENING EXAM: MAMMO SCREENING CLINICAL HISTORY: screening,Z12.39. TECHNIQUE: Bilateral full field digital CC and MLO mammographic images were obtained with 3D tomosyn thesis and utilizing computer aided detection (CAD). COMPARISON: Prior mammograms were reviewed. FINDINGS: There has been no significant change in the appearance and distribution of the fibroglandular tissue. There are no CAD designations. There are no new spiculated masses nor malignant appearing microcalcification groups. There is no significant architectural distortion nor skin thickening-retraction. IMPRESSION: No radiographic evidence of malignancy. BI-RADS Category 1 - Negative Breast Density - Category B - Scattered areas of fibroglandular density Breast density Category C or D implies that the patient has dense breast tissue. Dense breast tissue can make it harder to find cancer on a mammogram. Dense breast tissue is also associated with an incr eased risk of breast cancer. This information about the result of the mammogram report was provided to the patient to raise their awareness. Use this report when you speak with the patient about their risks for breast cancer, which includes their family history. At that time, you may recommend additional screening tests (Ultrasoun d or MRI) as these tests may add significant information. A negative radiographic report should not delay biopsy if a dominant or clinically suspicious mass is present. Up to ten percent of cancers are not identified on mammography. A negative report may reinforce clinical impression. Adenosis and dense breasts may obscure an underlying neoplasm. False positive reports average 6 to 10%. Patient will receive a letter notifying them of these results.
== END 2022-06-01 01:32 ==
LOC: DI 01:13
PROVIDERS: PCP Nurse Practitioner Family; Visit Provider Nurse Practitioner Family
DX: Z12.31 Encounter for screening mammogram for malignant neoplasm of breast (principal)
CPT/HCPCS: 77063; 77067

== ENCOUNTER → 2023-02-26 14:16 | Outpatient (BNVA) | payer OTHER, MEDICAID, SELFPAY | PROVIDERS: PCP Nurse Practitioner Family; Visit Provider Nurse Practitioner Gerontology | DX: R31.29 Other microscopic hematuria (principal) | CPT/HCPCS: 81003; 99213 ==

== ENCOUNTER 2023-07-23 14:37 | Outpatient (CLI) | payer OTHER, MEDICAID, SELFPAY ==
--- NOTE | 2023-07-23 14:30 | RT.EKG_ITS ---
APPROVED REPORT Exam: Resting ECG Reason for Exam: Syncope Patient Location: O HR:71 bpm ECG Measurements Heart Rate 71 AXIS MO 159 P 15 QRSd 83 QRS 26 QT 387 T 55 QTc 421 Conclusion Sinus rhythm...normal P axis, V-rate 50- 99 Normal Electrocardiogram
== END 2023-07-23 14:38 | disposition home or self-care (01) ==
PROVIDERS: PCP Nurse Practitioner Family; Visit Provider Emergency Medicine
DX: R55 Syncope and collapse (principal)
CPT/HCPCS: 93010

== ENCOUNTER 2023-07-24 03:39 | Outpatient (CLI) | payer OTHER, MEDICAID, SELFPAY ==
[2023-07-24 15:47] LABS: Abs Immature Grans 0.02 10^3/uL (0.0-0.06); Absolute Basophil Count 0.08 10^3/uL (0.0-0.2); Absolute Eosinophil Count 0.27 10^3/uL (0.0-0.7); Absolute Lymphocyte Count 2.35 10^3/uL (1.2-3.4); Absolute Monocyte Count 0.39 10^3/uL (0.1-0.8); Absolute Neutrophil Count 3.51 10^3/uL (1.2-6.7); Basophils % 1.2; Eosinophils % 4.1; HCT 40.2 % (36.0-46.0); HGB 13.5 g/dL (11.2-15.7); Immature Grans % 0.3; Lymphocytes % 35.5; MCH 29.6 pg (27.0-33.0); MCHC 33.6 % (32.0-36.0); MCV 88 fL (80-95); MPV 12.2 fL (8.0-11.0); Monocytes % 5.9; Platelet Count 176 10^3/uL (130-400); RBC 4.56 10^6/uL (3.93-5.22); RDW-SD 42.3 fL; WBC 6.62 10^3/uL (4.4-10.8)
[2023-07-24 17:16] LABS: ALT 28 U/L (14-59); AST 13 U/L (15-37); Albumin 4.1 g/dL (3.4-5.0); Alkaline Phosphatase 87 U/L (46-116); Anion Gap 11.8 mmol/L (3-11); BUN 19 mg/dL (7-18); Bilirubin, Total 0.4 mg/dL (0.2-1.0); CO2 24.2 mmol/L (21.0-32.0); CREATININE 1.1 mg/dL (0.55-1.02); Calcium 9.4 mg/dL (8.5-10.1); Chloride 105 mmol/L (98-107); Estimated GFR 60.84 (mL/min/1.73m2); Ferritin 198 ng/mL (8-252); Glucose 95 mg/dL (74-106); Potassium 3.6 mmol/L (3.5-5.1); Sodium 141 mmol/L (136-145); Total Protein 7.3 g/dL (6.4-8.2)
== END 2023-07-24 03:40 | disposition home or self-care (01) ==
LOC: LBO 03:40
PROVIDERS: Absent Provider Emergency Medicine; PCP Nurse Practitioner Family; Referring Provider Emergency Medicine; Visit Provider Emergency Medicine
DX: R55 Syncope and collapse (principal); D64.9 Anemia, unspecified
CPT/HCPCS: 36415; 80053; 82728; 85025

== ENCOUNTER 2023-10-05 01:49 | Outpatient (CLI) | payer OTHER, MEDICAID, SELFPAY ==
[2023-10-05 10:20] LABS: Abs Immature Grans 0.02 10^3/uL (0.0-0.06); Absolute Basophil Count 0.07 10^3/uL (0.0-0.2); Absolute Eosinophil Count 0.21 10^3/uL (0.0-0.7); Absolute Lymphocyte Count 1.51 10^3/uL (1.2-3.4); Absolute Monocyte Count 0.33 10^3/uL (0.1-0.8); Absolute Neutrophil Count 2.62 10^3/uL (1.2-6.7); Basophils % 1.5 %; Eosinophils % 4.4 %; HCT 41.5 % (36.0-46.0); HGB 13.8 g/dL (11.2-15.7); Immature Grans % 0.4 %; Lymphocytes % 31.7 %; MCH 30.5 pg (27.0-33.0); MCHC 33.3 % (32.0-36.0); MCV 92 fL (80-95); MPV 11.9 fL (8.0-11.0); Monocytes % 6.9 %; Neutrophils % 55.1 %; Platelet Count 183 10^3/uL (130-400); RBC 4.53 10^6/uL (3.93-5.22); RDW 13.3 % (11.7-14.6); RDW-SD 45.4 fL; WBC 4.76 10^3/uL (4.4-10.8)
[2023-10-05 10:31] LABS: Ammonia 12 umol/L (11-32); Hemoglobin A1C 5.9 % (<5.7)
[2023-10-05 10:44] LABS: Calculated LDL 119 mg/dL (<100); Cholesterol 196 mg/dL (<200); HDL Cholesterol 65 mg/dL (40-60); TSH 1.21 uIU/Ml (0.36-3.74); Triglyceride 62 mg/dL (<150)
[2023-10-05 18:54] LABS: Prolactin 10.3 ng/mL (See Note)
== END 2023-10-05 01:50 | disposition home or self-care (01) ==
LOC: LBO 01:50
PROVIDERS: PCP Nurse Practitioner Family; Visit Provider Registered Nurse
DX: F41.1 Generalized anxiety disorder (principal); F43.23 Adjustment disorder with mixed anxiety and depressed mood; Z51.81 Encounter for therapeutic drug level monitoring
CPT/HCPCS: 36415; 80061; 82140; 83036; 84146; 84443; 85025

== ENCOUNTER 2023-11-19 12:02 | Outpatient (REF) | payer OTHER, MEDICAID, SELFPAY ==
[2023-11-19 14:49] LABS: Source Nasal/Nares
[2023-11-19 16:31] LABS: COVID-19 PCR Negative (Negative)
== END 2023-11-19 12:03 | disposition home or self-care (01) ==
LOC: LBN 12:02
PROVIDERS: PCP Nurse Practitioner Family; Visit Provider Nurse Practitioner Adult Health
DX: R05.8 Other specified cough (principal); Z20.822 Contact with and (suspected) exposure to COVID-19
CPT/HCPCS: 87635

== ENCOUNTER 2024-01-15 14:59 | Outpatient (CLI) | payer OTHER, MEDICAID, SELFPAY ==
--- NOTE | 2024-01-15 14:00 | DI.RAD_ITS ---
Exam(s) XR KNEE RT 4V AP,LAT,DANE,PAT EXAM: XR KNEE RT 4V AP,LAT,DANE,PAT CLINICAL HISTORY: Pain from stairs, check patellar alignment, rt knee pain, M25.561. TECHNIQUE: 2D digital imaging was performed of the right knee. Five views obtained. Merchant, AP, la teral and PA tunnel views were obtained. COMPARISON: No exams were available for comparison FINDINGS: BONES: No acute fracture is present. No bony destructive lesion is seen. JOINTS: The knee is normally aligned. No joint effusion is seen. Patellar position is anatomic. SOFT TISSUE: Normal. IMPRESSION: Unremarkable radiographs of the right knee. DATA REPOSITORY: RADIATION DOSE DELIVERED:
== END 2024-01-15 15:19 ==
LOC: DI 01-23 15:00
PROVIDERS: PCP Nurse Practitioner Adult Health; Visit Provider Family Medicine
DX: M25.561 Pain in right knee (principal)
CPT/HCPCS: 73564

== ENCOUNTER 2024-03-13 14:44 | Outpatient (CLI) | payer OTHER, MEDICAID, SELFPAY ==
--- NOTE | 2024-03-13 14:15 | DI.RAD_ITS ---
Exam(s) XR CHEST 2V PA LATERAL EXAM: XR CHEST 2V PA LATERAL CLINICAL HISTORY: cough X 1 month R05.1 COUGH. TECHNIQUE: 2D digital imaging was performed. COMPARISON: CR XR CHEST 2V PA LATERAL from 10/27/2021 FINDINGS: 2 views: Heart size is normal. The mediastinum is not widened. Lungs are clear. No infiltrates nor pleural effusions. Accessory azygos lobe on the right side again noted. IMPRESSION: No acute pulmonary findings. DATA REPOSITORY: RADIATION DOSE DELIVERED:
== END 2024-03-13 15:04 ==
LOC: DI 14:45
PROVIDERS: PCP Nurse Practitioner Adult Health; Visit Provider Nurse Practitioner Family
DX: R05.1 Acute cough (principal)
CPT/HCPCS: 71046

== ENCOUNTER 2024-06-18 00:41 | Outpatient (CLI) | payer MEDICARE, MEDICAID, SELFPAY ==
--- NOTE | 2024-06-18 15:23 | DI.MAMMO_ITS ---
Exam(s) MAMMO SCREENING EXAM: MAMMO SCREENING CLINICAL HISTORY: screening,z00.00,[facility]. TECHNIQUE: Bilateral full field digital CC and MLO mammographic images were obtained with 3D tomosyn thesis and utilizing computer aided detection (CAD). COMPARISON: Prior mammograms were reviewed. FINDINGS: There has been no significant change in the appearance and distribution of the fibroglandular tissue. There are no CAD designations. There are no new spiculated masses nor malignant appearing microcalcification groups. There is no significant architectural distortion nor skin thickening-retraction. IMPRESSION: No radiographic evidence of malignancy. BI-RADS Category 1 - Negative Breast Density - Category B - Scattered areas of fibroglandular density Breast density Category C or D implies that the patient has dense breast tissue. Dense breast tissue can make it harder to find cancer on a mammogram. Dense breast tissue is also associated with an incr eased risk of breast cancer. This information about the result of the mammogram report was provided to the patient to raise their awareness. Use this report when you speak with the patient about their risks for breast cancer, which includes their family history. At that time, you may recommend additional screening tests (Ultrasoun d or MRI) as these tests may add significant information. A negative radiographic report should not delay biopsy if a dominant or clinically suspicious mass is present. Up to ten percent of cancers are not identified on mammography. A negative report may reinforce clinical impression. Adenosis and dense breasts may obscure an underlying neoplasm. False positive reports average 6 to 10%. Patient will receive a letter notifying them of these results.
== END 2024-06-18 01:01 ==
PROVIDERS: PCP Nurse Practitioner Family; Visit Provider Nurse Practitioner Family
DX: Z00.00 Encounter for general adult medical examination without abnormal findings (principal); R92.323 Mammographic fibroglandular density, bilateral breasts; Z12.31 Encounter for screening mammogram for malignant neoplasm of breast
CPT/HCPCS: 77063; 77067

== ENCOUNTER 2024-11-07 11:23 | Outpatient (REF) | payer MEDICARE, MEDICAID, SELFPAY | END 2024-11-07 11:24 | disposition home or self-care (01) | LOC: LBN 11:23 | PROVIDERS: PCP Nurse Practitioner Family; Visit Provider Nurse Practitioner Family | DX: R32 Unspecified urinary incontinence (principal) | CPT/HCPCS: 87086 ==

== ENCOUNTER 2024-11-25 03:59 | Outpatient (CLI) | payer MEDICARE, MEDICAID, SELFPAY ==
[2024-11-25 10:29] LABS: HCT 39.1 % (36.0-46.0); HGB 13.5 g/dL (11.2-15.7); MCH 31.0 pg (27.0-33.0); MCHC 34.5 % (32.0-36.0); MCV 90 fL (80-95); MPV 11.5 fL (8.0-11.0); Platelet Count 210 10^3/uL (130-400); RBC 4.36 10^6/uL (3.93-5.22); RDW 12.6 % (11.7-14.6); RDW-SD 41.6 fL; WBC 5.79 10^3/uL (4.4-10.8)
[2024-11-25 11:05] LABS: ALT 34 U/L (14-59); AST 15 U/L (15-37); Albumin 3.9 g/dL (3.4-5.0); Alkaline Phosphatase 94 U/L (46-116); Anion Gap 9.9 mmol/L (3-11); BUN 20 mg/dL (7-18); Bilirubin, Total 0.5 mg/dL (0.2-1.0); CO2 23.1 mmol/L (21.0-32.0); Calcium 8.7 mg/dL (8.5-10.1); Calculated LDL 110 mg/dL (<100); Chloride 105 mmol/L (98-107); Cholesterol 183 mg/dL (<200); Estimated GFR 67.36 (mL/min/1.73m2); Glucose 113 mg/dL (74-106); HDL Cholesterol 55 mg/dL (>or=50); Potassium 3.9 mmol/L (3.5-5.1); Sodium 138 mmol/L (136-145); Total Protein 7.3 g/dL (6.4-8.2); Triglyceride 92 mg/dL (<150)
== END 2024-11-25 04:00 | disposition home or self-care (01) ==
PROVIDERS: PCP Nurse Practitioner Family; Referring Provider Nurse Practitioner Family; Visit Provider Nurse Practitioner Family
DX: N28.9 Disorder of kidney and ureter, unspecified (principal); Z79.899 Other long term (current) drug therapy; E78.5 Hyperlipidemia, unspecified
CPT/HCPCS: 36415; 80053; 80061; 85027

== ENCOUNTER → 2025-04-07 15:32 | Outpatient (BNVA) | payer MEDICARE, MEDICAID, SELFPAY | PROVIDERS: PCP Nurse Practitioner Family; Referring Provider Nurse Practitioner Family; Visit Provider Podiatrist | DX: L60.3 Nail dystrophy (principal); B35.1 Tinea unguium; M79.674 Pain in right toe(s); M79.675 Pain in left toe(s); E11.22 Type 2 diabetes mellitus with diabetic chronic kidney disease; N18.9 Chronic kidney disease, unspecified; H54.8 Legal blindness, as defined in USA | CPT/HCPCS: 11755; 11720; 11719 ==

== ENCOUNTER → 2025-05-05 14:30 | Outpatient (BNVA) | payer MEDICARE, MEDICAID, SELFPAY | PROVIDERS: PCP Nurse Practitioner Family; Referring Provider Nurse Practitioner Family; Visit Provider Podiatrist | DX: L60.3 Nail dystrophy (principal); M79.674 Pain in right toe(s); M79.675 Pain in left toe(s); L60.2 Onychogryphosis; L60.8 Other nail disorders | CPT/HCPCS: 99213 ==